=== PATIENT | male | born 1965 | race Caucasian/White ===

== ENCOUNTER 2019-11-01 07:38 | Outpatient (CLI) | payer OTHER, SELFPAY ==
--- NOTE | ~2019-11-01 | US_ITS ---
EXAMINATION: US right upper quadrant EXAM DATE: 11/01/2019 08:47 INDICATION: Right upper quadrant pain. TECHNIQUE: Multiple grayscale and Doppler images of the abdomen right upper quadrant were obtained (b y a technologist who performed the scan) and subsequently reviewed. There is no prior study for michael mcmullen. FINDINGS: The pancreatic head and body are normal in appearance. The pancreatic tail is not visualized. The l iver has normal echogenicity and contour. There are no focal liver lesions identified. There is no evidence of intrahepatic biliary duct dilation. Portal venous flow was seen in the hepatopedal, nor mal direction and has normal Doppler waveform. No right-sided hydronephrosis. Common bile duct measures 5 mm, which is normal. The gallbladder wall is normal in thickness, with ex pected amount of distention. No sonographic evidence of pericholecystic fluid. There is no cholelit hiases. Technologist performing exam reports patient did not demonstrate sonographic Pinon's sign. Please note that this sign is less reliable in patients who have received pain medication. IMPRESSION: 1. Unremarkable abdominal ultrasound exam. Reviewed, dictated and finalized at location B. 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
== END 2019-11-01 07:39 | disposition home or self-care (01) ==
PROVIDERS: PCP Internal Medicine; Visit Provider Internal Medicine
DX: R10.11 Right upper quadrant pain (principal)
CPT/HCPCS: 76705

== ENCOUNTER 2021-06-27 00:04 | Day surgery (SDC) | payer OTHER, SELFPAY ==
[2021-06-20 08:51] VITALS: BMI 26.4
--- NOTE | 2021-06-26 16:24 | PM.SD2 ---
Same Day Admit/Disch: HPI History of Present Illness Chief complaint: Right Inguinal Hernia Narrative: Sid Lu is a 56 year old male Who had noticed a right groin bulge that is occasionally painful. He reduces it himself from time to time. He relates this to having moved some furniture sometime ago. He started having pain in the area of the right groin bulge when exercising. He was seen in the office and found to have a right inguinal hernia that is reducible. He is taken to surgery now for right inguinal hernia repair. [facility] Past Medical History Medical History Skin cancer Surgical History Surgical History Skin cancer, basal cell excision of skin cancer [place] teeth extracted Family History Family History Father Diabetes mellitus COPD (chronic obstructive pulmonary disease) Mother Breast cancer Social History Social History Smoking packs per day: 1 Smoking cigarettes per day: 20.0 Years smoked: 2 Smoking pack-years: 2.00 Smoking status: Former smoker Tobacco type: cigarettes Smoking end date: 09/22/86 Alcohol intake: current Drinks per week: 10 Substance use: never Substance use type: does not use Living arrangements: with family 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 Spiritual care concerns: No Same Day Admit/Disch: Med Pre-admit Medications Home Medications Medication Instructions Recorded Confirmed Type hydrocodone-acetaminophen 1 - 2 tablet PO Q6H PRN #7 tablet 06/27/21 Rx ketorolac 10 mg PO Q6H 4 Days #16 tablet 06/27/21 Rx Exam Const: General: comfortable, no acute distress, alert and awake HENMT: Head: normocephalic and atraumatic Mouth: Yes Normal oral and palatal mucosa present Eyes: Conjunctivae: conjunctivae normal Pupils: Equal, round and reactive pupils present EOM: EOMs intact bilaterally Neck: Neck: normal visual inspection, no lymphadenopathy and nontender Resp: Effort & Inspection: normal respiratory effort Auscultation: clear to auscultation bilaterally Cardio: Rate: regular rate Rhythm: regular rhythm Heart sounds: no gallops, no murmurs and no rubs GI: Inspection: non-distended GI Palp: Yes Soft to palpation, No Tenderness to palpation present (GI), No Hepatomegaly present and No Splenomegaly present : Male General Exam: Yes hernia ( right inguinal hernia, reducible. No left inguinal hernia) Penis: Yes normal penis Scrotum: scrotum normal Testes: Testes normal Skin: Lesions: no lesions Rashes: no rashes Neuro: General: no focal motor deficits and CN's II-XI intact bilaterally Cranial nerves: Yes Equal, round and reactive pupils present, Yes Bilaterally intact EOM present, Yes facial symmetry and Yes Midline tongue present Speech: normal speech Motor exam (neuro): 5/5 motor strength present throughout and Motor abnormalities not present Extrem: General: no clubbing, cyanosis or edema and edema Psych: Affect: normal affect Thought process: Normal thought process present Insight: Good insight present (Psych) DS: Summary Time Spent with Patient Time attestation: Total time spent providing and/or coordinating discharge services: DS: Admitting Diagnosis Discharge Date 06/27/2021 Admitting Diagnosis reducible right inguinal hernia-- plan to proceed with repair under anesthesia as an outpatient. The procedure the risks the benefits have been discussed with the patient. All questions were answered. He understands and agrees to go ahead. DS: Discharge Diagnosis Discharge Diagnosis (1) Left inguinal hernia: Code(s): K40.90 - Unilateral inguinal hernia, without obstruction or gangrene, not specified as recurrent Status: Chronic Discharge Plan Discharge Patient Dispositio
[2021-06-27 06:18] VITALS: BMI 25.9
--- NOTE | 2021-06-27 06:41 | WPDANESEPPF ---
Anes - Initial Pre Proc Eval Procedure: Operation Date: 06/27/21 07:30 Proposed Procedures p Right Inguinal Hernia Repair - Kan Kidd MD Date/Time: 06/27/21 06:41 Surgeon: Kan Kidd MD Pre Op Diagnosis: Right Inguinal Hernia Patient Data Age: 56 Gender: M Height: 1.83 m Weight: 87 kg Allergies Allergy/AdvReac Type Severity Reaction Status Date / Time Penicillins Allergy Mild Rash Verified 06/27/21 06:21 Home Medications Medication Instructions Recorded Confirmed Type No Home Medications 04/11/21 06/27/21 History Patient hx anesthesia problems: none Family hx anesthesia problems: none Results Review: All pre-operative results and documents have been reviewed as part of the pre-operative evaluation. [facility] Past Medical History Medical History Skin cancer Surgical History Surgical History Skin cancer, basal cell excision of skin cancer [place] teeth extracted Family History Family History Father Diabetes mellitus COPD (chronic obstructive pulmonary disease) Mother Breast cancer Social History Social History Smoking packs per day: 1 Smoking cigarettes per day: 20.0 Years smoked: 2 Smoking pack-years: 2.00 Smoking status: Former smoker Tobacco type: cigarettes Smoking end date: 09/22/86 Alcohol intake: current Drinks per week: 10 Substance use: never Substance use type: does not use Living arrangements: with family 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 Informed Consent: The patient's anesthetic plan and its attendant risks and benefits were discussed with the patient/family/POA. Questions were solicited and answers provided to the satisfaction of the patient/family/POA.
[2021-06-27 06:56] VITALS: BP 131/71; PULSE 82; RESP 18; TEMP 36.5; O2SAT 100
[2021-06-27] MEDS: LACTATED RINGERS 1,000 ML 30 ML IV CONT ×2 (06:59→08:46)
[2021-06-27] MEDS: ACETAMINOPHEN 500 MG TABLET 1000 MG PO (07:00)
[2021-06-27] MEDS: KETOROLAC 15 MG/ML VIAL (*BKC) IV PUSH (07:00)
--- NOTE | 2021-06-27 07:12 | WPDHPUPDATE1 ---
History and Physical Update Update Date/Time: 06/27/21 07:12 History and Physical has been reviewed, including an updated exam of the patient. There are NO changes in the patient's condition. Risks, benefits, and alternatives have been discussed and questions answered. Patient agrees to proceed with procedure.
[2021-06-27] MEDS: ceFAZolin 2 GM/D5W 50 ML 2 GM/50 ML BAG IVPB (07:24)
--- NOTE | 2021-06-27 08:38 | SUR.OPER ---
Per Dr. Kidd, x 3 Zaracoll 100mg Pouch Implants implanted during Right Inguinal Hernia Repair.
[2021-06-27 08:46] VITALS: BP 117/59; PULSE 92; RESP 14; O2SAT 95
[2021-06-27 09:15] VITALS: BP 127/76; PULSE 78
[2021-06-27 09:45] VITALS: BP 129/72; PULSE 74
[2021-06-27 10:15] VITALS: BP 133/71; PULSE 63
--- NOTE | 2021-06-27 10:18 | P.OP_ITS ---
Procedure Note - Detailed Date of Procedure 06/27/21 Pre-op Diagnosis Right Inguinal Hernia Post-op Diagnosis same Procedure Performed Right inguinal hernia repair with 8 cm Parietex hernia mesh system Surgeon Kan Kidd MD Bacteriology Technician Monika [facility] Anesthesia MAC and local (1% lidocaine with epinephrine) Indications Patient noticed the right inguinal bulge which is occasionally painful. On examination he was found to have a right inguinal hernia. He is taken to surgery now for repair Findings Showed a large direct right inguinal hernia. There was no indirect hernia. Description of Procedure Patient was taken to surgery and IV sedation was administered. Prep and drape of the right groin and genitalia was carried out. The proposed incision was marked in the right inguinal region. Local anesthetic was infiltrated in the area of the anticipated incision and in the deeper subcutaneous tissues. Incision was made dissection was carried down through the subcutaneous. Crossing veins were cauterized and divided. Dissection was carried through Vero's fascia and down to the external oblique aponeurosis. Aponeurosis was exposed as was the external ring. Additional local was infiltrated deep to the aponeurosis in the area of the spermatic cord and inguinal canal contents. The external oblique aponeurosis was then opened laterally and extended medially through the external ring. The leaves the aponeurosis were then carefully dissected from the spermatic cord. The ilioinguinal nerve was left attached to the cord and was carefully preserved through the surgery. The cord was mobilized medially on a [place] drain. The hernia sac was found fairly easily as it was a large direct hernia. The hernia sac was dissected free from the cord and the cord was mobilized back to the internal ring. Cautery was used for hemostasis. The hernia sac was dissected circumferentially around its base. It was scored through the transversalis fascia circumferentially about a cm above its neck. The sac was then dunked into the retroperitoneum. An 8 cm Parietex unga was chosen. It was folded deform a plug. It was placed in the defect and then the edges were sutured to the transversalis fascia with interrupted 3-0 Vicryl suture. The defect was then partially closed with interrupted 3-0 Vicryl suture. The patch was cut to the appropriate size placed over the inguinal canal floor. The lateral leaves were passed beyond the cord. I then cut and placed Xaracoll to lay on the inguinal floor just over the patch. The spermatic cord and ilioinguinal nerve were then laid over the Xaracoll all. The external oblique aponeurosis was closed with interrupted 3-0 Vicryl suture. Additional Xaracoll was then placed over the external oblique aponeurosis closure. Vero's fascia was closed with interrupted 3-0 Vicryl suture. Xaracoll was also placed just under the skin in the subcutaneous tissue. The skin was loosely approximated with interrupted 4 0 Vicryl suture. The skin was closed finally with a running 4-0 Monocryl skin suture. The wound was dressed with Exofin surgical adhesive. Patient was awakened and taken to recovery in good condition. Sponge and needle counts were correct x2. Implants 8 cm Parietex hernia mesh system, bupivacaine collagen matrix implant (Xaracoll). Estimated Blood Loss 5 Drains No Pathology none sent Complications None Condition stable Disposition PACU
== END 2021-06-27 10:23 | disposition home or self-care (01) ==
PROVIDERS: PCP Internal Medicine; Visit Provider Surgery
PROC: (CPT 49505; principal; 2021-06-27 07:30)
DX: K40.90 Unilateral inguinal hernia, without obstruction or gangrene, not specified as recurrent (principal); Z87.891 Personal history of nicotine dependence
CPT/HCPCS: 49505; A9270; C1781; J0690; J1100; J1170; J1885; J2250; J2405; J2704; J3010; J7120

== ENCOUNTER 2022-09-24 16:30 | Emergency (ER) | payer OTHER, SELFPAY ==
[2022-09-24 16:45] VITALS: BP 150/74; PULSE 94; RESP 16; TEMP 36.3; O2SAT 99
--- NOTE | 2022-09-24 17:07 | ED.URI ---
HPI - URI/Sore Throat General Chief Complaint: Upper Respiratory Infection Stated Complaint: sorethroat,nasal drainage Time Seen by Provider: 09/24/22 17:07 Source: patient Mode of arrival: ambulatory Limitations: no limitations History of Present Illness HPI Narrative: 57-year-old male presents with complaint of sore throat, runny nose, postnasal drainage that started last night. Afebrile. No other symptoms rain not taking any [id number]-lag-ushmavc medications to treat symptoms. All systems reviewed and negative except as noted above. Related Data Home Medications Medication Instructions Recorded Confirmed No Home Medications 07/12/21 09/24/22 Allergies Allergy/AdvReac Type Severity Reaction Status Date / Time Penicillins AdvReac Mild Rash Verified 09/24/22 16:44 Review of Systems Review of Systems: CONSTITUTIONAL: Denies fever, chills, or sweats. EYES: Denies visual changes, redness, or discharge. ENT: Reports rhinorrhea, sore throat, postnasal drainage. CARDIOVASCULAR: Denies chest pain, palpitations, or edema. RESPIRATORY: Denies cough or dyspnea. GASTROINTESTINAL: Denies abdominal pain, nausea, vomiting, or diarrhea. GENITOURINARY: Denies dysuria or hematuria. SKIN: Denies rash or itching. MUSCULOSKELETAL: Denies back pain, joint pain, or myalgia. NEUROLOGIC: Denies headache, numbness, or weakness. PSYCHIATRIC: Denies anxiety or depression. All other systems reviewed are negative, except as documented in HPI. [facility] Past Medical History Medical History Skin cancer Surgical History Surgical History H/O inguinal hernia repair 06/27/21 Right inguinal hernia repair with 8 cm Parietex hernia mesh system Skin cancer, basal cell excision of skin cancer [place] teeth extracted Family History Family History Father Diabetes mellitus COPD (chronic obstructive pulmonary disease) Mother Breast cancer Social History Social History Smoking packs per day: 1 Smoking cigarettes per day: 20.0 Years smoked: 2 Smoking pack-years: 2.00 Smoking status: Former smoker Tobacco type: cigarettes Smoking end date: 09/22/86 Alcohol intake: current Drinks per week: 10 Substance use: never Substance use type: does not use 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 Anticipatory guidance given. Patient agrees to follow-up as directed and is aware of reasons to seek care at the emergency department. Portions of this record may have been created with voice recognition software Exam Narrative: GENERAL: This is a well-nourished, well-developed patient, in no apparent distress. HEAD: normocephalic, atraumatic. EYES: PERRL. Sclera clear/white. Vision is grossly intact. EARS: External ears normal, auditory canals clear and without drainage, TMs normal without perforation. Hearing grossly intact. NOSE: External nose normal with clear nasal drainage. THROAT: Mucous membranes moist, Mild erythema posterior pharynx with postnasal drainage. NECK: Neck supple, non-tender without lymphadenopathy, masses or thyromegaly. CARDIOVASCULAR: Regular rate and rhythm without murmurs, gallops, or rubs. RESPIRATORY: Clear to auscultation. Breath sounds equal bilaterally. No wheezes, rales, or rhonchi. GASTROINTESTINAL: Abdomen soft, non-tender, nondistended. Bowel sounds are active. No hepato-splenomegaly, or palpable masses. No guarding. SKIN: warm, Dry, intact with no suspicious lesions or rash, good texture and turgor. NEURO: awake, alert, and oriented to person, place and time. There were no obvious focal neurologic abnormalities. EXTREMITIES: No joint tenderness, effus
== END 2022-09-24 17:16 | disposition home or self-care (01) ==
PROVIDERS: Emergency Provider Nurse Practitioner Family; PCP Internal Medicine
DX: J30.9 Allergic rhinitis, unspecified (principal); R09.82 Postnasal drip; Z87.891 Personal history of nicotine dependence; Z85.828 Personal history of other malignant neoplasm of skin
CPT/HCPCS: 87081; 87880; 99213; G0463

== ENCOUNTER → 2022-11-22 08:23 | Outpatient (CLI) | payer OTHER, SELFPAY ==
--- NOTE | ~2022-11-22 | US_ITS ---
US renal BI 11/22/2022 08:57 Procedure: Realtime transabdominal ultrasound of the kidneys and bladder. Indication: Proteinuria Comparison: No prior studies for comparison. Findings: Renal echotexture is normal bilaterally without hydronephrosis, contour deforming mass or r enal calculus. The right kidney measures 11 cm and left kidney measures 11.1 cm. Bladder within norm al limits. Incidental note is made of fatty infiltration of the liver. Impression: 1: Unremarkable renal ultrasound. No stones, masses or hydronephrosis. Reviewed, dictated and finalized at location B. RITY MOTHER Impression: 1: Unremarkable renal ultrasound. No stones, masses or hydronephrosis.
== END ==
PROVIDERS: PCP Internal Medicine
DX: R80.9 Proteinuria, unspecified (principal)
CPT/HCPCS: 76775